=== PATIENT | female | born 1965 | race Caucasian/White ===

== ENCOUNTER 2019-02-27 16:25 | Emergency (ER) | payer OTHER ==
[~2019-02-27] VITALS: Ht 154.9 cm; Wt 86.4 kg
[~2019-02-27 16:25] MED LIST: TAMOXIFEN CITRA20 MG PO
[2019-02-27] MEDS ORDERED: ONDANSETRON HCL INJ 2MG/ML 2ML 2 MG/ML VIAL ONE (16:55)
[2019-02-27] MEDS ORDERED: KETOROLAC TROMETHAMINE 30 MG/ML VIAL ONE (16:56)
[2019-02-27] MEDS ORDERED: SODIUM CHLORIDE 0.9% 1000ML 1,000 ML IV STA (17:29)
[2019-02-27] MEDS ORDERED: KETOROLAC TROMETHAMINE 30 MG/ML VIAL IV ONE (17:30)
[2019-02-27] MEDS ORDERED: ONDANSETRON HCL INJ 2MG/ML 2ML 2 MG/ML VIAL IV ONE (17:30)
[2019-02-27] MEDS ORDERED: SODIUM CHLORIDE 0.9% 1000ML 1,000 ML ONE (17:49)
--- NOTE | 2019-02-27 18:06 | Diagnostic Imaging Report ---
CT Abdomen and Pelvis without contrast INDICATION: Right flank pain, ^[id number] ^[id number] TECHNIQUE: Thin collimation axial images obtained from the diaphragm to the level of the pubic symphysis without nonionic intravenous contrast. Dose reduction techniques used: Automated exposure control, adjustment of the mAs and/or kVp according to patient size, standardized low-dose protocol, and/or iterative reconstruction technique. RADIATION DOSE: Total DLP: 742.2 mGy*cm Estimated effective dose: (DLP x 0.015 x size factor) mSv CTDIvol has been reviewed. It is below the limits set by the Radiation Protocol Committee (RPC). COMPARISON: None. ABDOMEN FINDINGS: Lung Bases: Mild hyperinflation with bibasilar chronic atelectasis/scarring, particularly the left lower lobe. The visualized portion of the mediastinum is normal. Liver: Mild steatosis. No mass. Gallbladder: Present and appears normal. No ductal dilatation. Pancreas: Mild fatty atrophy. No mass. Spleen: Normal size without mass. Adrenal Glands: No evidence for mass. Kidneys: Right: No renal calculus. No perinephric inflammation or edema. No cortical mass or hydronephrosis. Left: Multiple intrarenal calculi in the lower pole, the largest measuring 3 mm. No perinephric inflammation. No cortical mass or hydronephrosis. Lymph Nodes: No lymphadenopathy. Aorta: Normal in diameter. PELVIS FINDINGS: Bowel: Stomach: Normal. Small Bowel: Normal in caliber with normal wall thickness. Large Bowel: Normal in caliber with normal wall thickness. Appendix: Normal. Bladder: Normal. Ureters: No ureteral dilatation or or calculus. The uterus is absent. No adnexal mass. No free fluid or fluid collection. Bones: Unremarkable for age. Soft tissues: Multiple clips in the anterior abdominal wall. No evidence of hernia. IMPRESSION: 1. Left intrarenal calculi. No right intrarenal calculi. No obstructive uropathy or renal edema. 2. No evidence for bowel obstruction or inflammation. Normal appendix. 3. Mild steatosis. Signed by: Dr. Luanne Whelan MD on 02/27/2019 6:02 PM
[2019-02-27 18:49] VITALS: BP 142/65
== END 2019-02-27 18:41 | disposition home or self-care (01) ==
LOC: FSED 16:25
DX: R10.11 Right upper quadrant pain (principal); R10.33 Periumbilical pain; K29.00 Acute gastritis without bleeding
CPT/HCPCS: 74176; 80053; 81003; 85025; 96374; 96375; 99284; J1885; J2405; J7030